=== PATIENT | female | born 1960 | race African-American/Black ===

== ENCOUNTER 2017-12-16 16:24 | Outpatient (CLI) | payer BC | END 2017-12-16 16:25 | disposition home or self-care (01) | LOC: BICMAMMO 16:24 | PROVIDERS: ATTEND Specialist | DX: Z12.31 Encounter for screening mammogram for malignant neoplasm of breast (principal) | CPT/HCPCS: 77063; 77067 ==

== ENCOUNTER 2019-04-28 12:45 | Outpatient (CLI) | payer BC ==
[~2019-04-28 12:45] MED LIST: Iopamidol 370 76% 100 ML VIAL ONE; Iopamidol 370 76% 50 ML VIAL FS ONE
[2019-04-28 13:22] LABS: #Eosinphils 0.1 thou/uL (0.0-0.7); #Lymphocytes 1.3 thou/uL (1.20-3.40); #Monocytes 0.3 thou/uL (0.11-0.59); %Basophils 0.3 % (0.0-1.0); %Eosinophils 4.4 % (0.0-10.0); %Lymphocytes 48.7 % (21.0-51.0); %Monocytes 9.5 % (0.0-10.0); %Neutrophils 37.2 % (42.0-75.0); Hemoglobin 14.7 g/dL (12.0-16.0); Mean Corpuscular HGB CONC 33.8 g/dL (32.0-36.0); Mean Corpuscular Hemoglobin 31.3 pg (27.0-31.0); Mean Corpuscular Volume 92.6 fL (78.0-98.0); Mean Platelet Volume 9.1 fL (7.4-10.4); Platelet Count 161 thou/uL (130-400); RBC Distribution Width 11.3 % (11.5-14.5); White Blood Cell (WBC) Count 2.7 thou/uL (4.8-10.8)
[2019-04-28 13:42] LABS: ALT (SGPT) 34 U/L (8-55); AST (SGOT) 28 U/L (5-34); Albumin 4.5 g/dL (3.5-5.0); Alkaline Phosphatase 79 U/L (40-150); Anion Gap 14 mmol/L (10-20); BUN (Urea Nitrogen) 12 mg/dL (9.8-20.1); Bilirubin, Total 0.3 mg/dL (0.2-1.2); Calc. Creatinine Clearance 0 mL/min (70-130); Calcium 9.7 mg/dL (7.8-10.44); Carbon Dioxide 27 mmol/L (22-29); Chloride 105 mmol/L (98-107); Estimated GFR-MDRD Greater than 90; Globulin 3.5 g/dL (2.4-3.5); Glucose 104 mg/dL (70-105); Potassium 3.8 mmol/L (3.5-5.1); Sodium 142 mmol/L (136-145)
--- NOTE | 2019-04-28 14:47 | RAD ---
TWO VIEW CHEST: INDICATION: Mass of colon. FINDINGS: The lungs are clear. There is mild enlargement of the cardiac silhouette. No effusion or pneumothor ax. Osseous structures are intact. There is enteric contrast of the imaged bowel of the upper abdom en. IMPRESSION: 1. No focal consolidation. 2. Mild enlargement of the cardiac silhouette. POS: C
--- NOTE | 2019-04-28 14:49 | CT ---
CT Abdomen Pelvis W Con History: K 63.9 mass of colon Comparison: None. Findings: Lung bases are clear. No pericardial effusion. There are innumerable hypodensities of the liver, some of which are large, some of which are subcenti meter. The hypodensities which measure greater than 1 cm have fluid attenuation suggestive of cysts. Spleen is unremarkable. Pancreas is unremarkable. Adrenal glands are unremarkable. There are hypodens ities of both kidneys suggestive of cysts. Nonobstructive interpolar and superior right renal calculi. The aortoiliac contour is nonaneurysmal. There is an abnormal mass of the sigmoid colon with a length of 3.5 cm. Remainder of the colon appear s unremarkable. There is an single abnormal sigmoid mesenteric lymph node measuring up to 9 mm. The appendix is visualized and is normal. No suspicious osteolytic or osteoblastic lesion. Moderate f acet arthropathy of the lower lumbar spine. Impression: 1. Sigmoid colon mass measuring 3.5 cm in length with a single abnormal sigmoid mesenteric lymph note d concerning for metastasis. 2. Numerous hypodensities of the liver, likely all cysts. 3. Nonobstructive right renal calculi. 4. Bilateral renal hypodensities suggestive of cysts.
[2019-04-28 16:15] LABS: Hemoglobin A1c 6.4 % (4.0-6.0)
== END 2019-04-28 12:46 | disposition home or self-care (01) ==
LOC: CT 12:45
PROVIDERS: ATTEND Specialist
DX: K63.89 Other specified diseases of intestine (principal); N20.0 Calculus of kidney; K76.89 Other specified diseases of liver; I51.7 Cardiomegaly
CPT/HCPCS: 36415; 71046; 74177; 80053; 82378; 83036; 85025; 93005; 93010; Q9967

== ENCOUNTER 2019-04-28 15:00 | Inpatient (IN) | payer BC ==
[2019-04-28 15:20] VITALS: BMI 28.0
--- NOTE | 2019-04-29 07:39 | HP ---
HISTORY OF PRESENT ILLNESS: Shanta Cunningham is a 59-year-old female patient followed by Dr. Fonseca and seen by Dr. Angella Fonseca, Gastroenterology, today. The patient had a colonoscopy more than 15 years ago, presents now because of crampy abdominal pain, bloating and rectal bleeding. She was having loose stools. She has initially had stool studies that were negative. She was seen by Dr. Fonseca's PA, Allegra, who performed stool studies and serology and treated for H. pylori. Today, the patient underwent upper endoscopy revealing the mild gastritis and colonoscopy was incomplete due to inability to pass the scope beyond the rectosigmoid. The patient had a sigmoid colon mass just above the rectosigmoid placed 20 cm from the rectal verge. Dr. Fonseca was unable to pass the scope beyond the mass. The patient is referred for surgical evaluation. Biopsies were obtained. ALLERGIES: NONE. TOBACCO: None. ALCOHOL: Rarely. MEDICATIONS: 1. Thyroid replacement. 2. Cholesterol lowering medication. PAST SURGICAL HISTORY: Childbirth x2, hysterectomy in 2005, foot surgery. PAST MEDICAL HISTORY: Hypothyroidism, treated medically; elevated cholesterol. SOCIAL HISTORY: The patient is and has two grown children. 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 REVIEW OF SYSTEMS: Ten-point noncontributory. PHYSICAL EXAMINATION: VITAL SIGNS: Weight 158 pounds, height 63 inches, blood pressure 173/88, heart rate 69, temperature 97.5 degrees. HEAD, EARS, EYES, NOSE AND THROAT: Unremarkable. LUNGS: Clear to auscultation. CARDIAC: Regular rate and rhythm without murmur or gallop. ABDOMEN: Soft and nontender. No masses palpable. No tympany. No distention. Well-healed infraumbilical scar from hysterectomy. EXTREMITIES: No edema. ASSESSMENT AND PLAN: High-grade partially obstructing lower sigmoid colon mass consistent with cancer. Biopsies are pending. I have talked to her about undergoing a CAT scan of the abdomen and pelvis and chest x-ray today as well as obtaining a CBC, comprehensive metabolic profile, and a CEA level. She will continue on clear liquids today. We will plan laparoscopic possible open sigmoid colon resection with low anterior anastomosis tomorrow under general anesthesia and TAP block. We will plan postoperative followup in my office next week as well as seeing the medical oncologist next week regarding need for adjunctive therapy. She understands risks of infection, bleeding, reoperation, ureteral injury, open procedure, anastomotic leakage, possible protective ileostomy, and consents. Job ID: [id number]
[2019-04-29] MEDS ORDERED: Midazolam HCl 2 mg/2 ml Vial ONE (11:27)
[2019-04-29] MEDS ORDERED: Fentanyl 100 MCG/2 ML VIAL ONE ×4 (11:27→18:14)
[2019-04-29] MEDS ORDERED: Dexamethasone 4 mg/ml Vial ONE (11:27)
[2019-04-29] MEDS ORDERED: Ketorolac Tromethamine 30 MG/ML VIAL ONE (11:40)
[2019-04-29] MEDS ORDERED: Acetaminophen 1,000 MG in Premix Bag 1 BAG IVPB SCH ×2 (12:00→17:30)
[2019-04-29] MEDS ORDERED: Meropenem 2 GM in Admixture Fee 1 EACH IVPB SCH (12:00)
[2019-04-29] MEDS ORDERED: Ketorolac Tromethamine 30 MG/ML VIAL IVP SCH ×2 (12:00→18:45)
[2019-04-29] MEDS ORDERED: Meropenem 2 GM in Sodium Chloride 0.9% 100 ML IVPB SCH (12:15)
[2019-04-29] MEDS ORDERED: Fentanyl 250 MCG/5 ML VIAL ONE (13:45)
[2019-04-29] MEDS ORDERED: Bupivacaine/Epinephrine 0.25% 30 ML VIAL ONE (14:09)
[2019-04-29] MEDS ORDERED: Morphine 4 MG/ML VIAL SLOW IVP PRN (17:18)
[2019-04-29] MEDS ORDERED: hydrALAZINE 20 MG/ML VIAL SLOW IVP PRN (17:18)
[2019-04-29] MEDS ORDERED: Ondansetron PF 4 MG/2 ML Vial IVP PRN ×2 (17:18→18:18)
[2019-04-29] MEDS ORDERED: traMADol HCl 50 MG TAB PO PRN ×2 (17:24)
[2019-04-29] MEDS ORDERED: Naloxone HCl 0.4 mg/ml Vial IV PRN (18:18)
[2019-04-29] MEDS ORDERED: diphenhydrAMINE 50 MG/ML VIAL IM PRN (18:18)
[2019-04-29] MEDS ORDERED: Zolpidem Tartrate 5 MG TAB PO PRN (18:18)
[2019-04-29] MEDS ORDERED: diphenhydrAMINE 50 MG/ML VIAL IVP PRN (18:18)
[2019-04-29] MEDS ORDERED: diphenhydrAMINE 25 MG CAP PO PRN (18:18)
[2019-04-29] MEDS ORDERED: Promethazine HCl 25 MG/ML VIAL IM PRN (18:18)
[2019-04-29] MEDS ORDERED: fentaNYL Citrate/PF 2,000 MCG in Sodium Chloride 0.9% 60 ML IV PRN (18:18)
[2019-04-29] MEDS ORDERED: Metoprolol Tartrate 5 MG/5 ML VIAL ONE (18:20)
[2019-04-29] MEDS ORDERED: Communication Order-Pharmacy FS SCH (18:30)
[2019-04-29] MEDS ORDERED: HYDROmorphone 2 MG/ML VIAL ONE (18:34)
--- NOTE | 2019-04-29 19:48 | OP ---
DATE OF PROCEDURE: 04/29/2019 PREOPERATIVE DIAGNOSIS: Sigmoid colon cancer, high-grade obstruction, could not pass the colonoscope beyond. POSTOPERATIVE DIAGNOSES: Sigmoid colon cancer, high-grade obstruction, could not pass the colonoscope beyond with past history of hysterectomy with oophorectomy. PROCEDURES PERFORMED: Laparoscopic splenic flexure mobilization, laparoscopic sigmoid colon resection with en bloc resection of the left tube and ovary with colorectal anastomosis, 31-mm EEA stapler, checked under water without leak. ANESTHESIA: General, TAP block. ESTIMATED BLOOD LOSS: 200 mL. BLOOD TRANSFUSION: None Note; preoperative CEA level and CAT scan negative for metastatic disease. Note; the patient who had a large sigmoid tumor circumferential with distortion of the serosa, but not adherent to any surrounding structures. DESCRIPTION OF PROCEDURE: The patient was taken to the operating room where under general anesthesia and TAP block in the dorsal lithotomy position. Singh catheter was placed, left in place at the end of the procedure. Abdomen, perineum, pelvis, and buttocks were prepared with Betadine and draped in routine fashion. Right periumbilical incision made. Pneumoperitoneum to 15 mmHg was obtained with a Veress needle. Left upper quadrant, right upper quadrant, left lower quadrant incisions were made and 5 ports placed. Right lower quadrant incision was made and a 12 port placed. Laparoscopic mobilization of gastrocolic ligament taken down from the distal transverse colon, splenic flexure using the LigaSure. Left colon was mobilized from Gerota fascia. Dissection was carried out medial to lateral sigmoid colon near the pelvis at the sacral apex. Hemorrhoidal vessels identified, dissected anterior. Presacral area dissected free. Dissection was carried up cephalad, medial to lateral, identifying the inferior mesenteric artery and the left ureter. Inferior mesenteric artery was divided with the ASIA white load stapler. Further dissection cephalad carried out, mobilizing the complete mobilization of the splenic flexure and descending colon. Left ureter identified at all times, kept care free of harm. Dissection was carried down to the rectosigmoid. Surrounding the mesentery of the sigmoid colon then divided with LigaSure, skeletonizing the rectosigmoid area and then the distal sigmoid colon just above the rectum or just at the rectum divided with the Endo-ASIA blue load ASIA stapler. At this point, the colon was inspected, and it would reach easily into the pelvis. The suprapubic incision made transversely, Pfannenstiel type, carried down to the skin and subcutaneous tissue sharply and with cautery and incising the rectus fascia transversely, reflecting the rectus muscles laterally, exposing the midline of the abdominal cavity, dissecting the rest free, and placing the wound protector, bringing the sigmoid colon out of the incision and at the point of division, the mesentery divided with a LigaSure to the colon, divided with a cutting current of the cautery, has good blood supply. Mucosa was healthy as a pursestring suture of 2-0 Prolene placed. Once the pursestring Prolene suture was placed, a 31-mm EEA anvil placed, lubricated in the proximal colon. Pursestring suture tied and fatty tissue skeletonized in preparation for the anastomosis. My gloves were then changed. Colon brought back into the abdominal cavity. The wound protecting device twisted to reestablish pneumoperitoneum and my personal care assistant certified diabetes educator then placed rectal sizers in the rectum, then the rectal stapler advanced to the staple line of the rectum and advancing the post out of the staple line, visualized laparoscopically, there was a small amount of fatty tissue, was cleared with the LigaSure, and anastomosis completed with 31-mm EEA stapler completing the anastomosis, removing intact donuts, and anastomosis checked under water, and there was no leak. Good hemostasis noted. Sponge and needle counts were correct. All instruments removed. Our gloves have been changed. The suprapubic fascia Pfannenstiel incision approximated with continuous suture of #1 PDS, skin and subcutaneous tissues irrigated vigorously, and good hemostasis was obtained with the cautery. Irrigant and pneumoperitoneum had been evacuated. All skin incisions were approximated with interrupted subdermal and continuous subdermal suture of 4-0 Monocryl. The patient tolerated the procedure well. Job ID: [id number]
[2019-04-29] MEDS: Acetaminophen 1,000 MG in Premix Bag 1 BAG IVPB SCH (20:05)
[2019-04-29] MEDS: Lactated Ringer's 1,000 ML IV SCH (20:35)
[2019-04-29] MEDS: Pantoprazole 40 MG VIAL IVP SCH (20:57)
[2019-04-29] MEDS ORDERED: Calcium Carbonate 500 MG TAB PO SCH (21:00)
[2019-04-29] MEDS ORDERED: Famotidine/PF 20 mg/2ml Vial SLOW IVP SCH (21:00)
[2019-04-29] MEDS ORDERED: Enoxaparin Sodium 40 MG/0.4 ML SYRINGE SC SCH (21:00)
[2019-04-29] MEDS ORDERED: Famotidine 20 MG TAB PO SCH (21:00)
[2019-04-30] MEDS: Acetaminophen 1,000 MG in Premix Bag 1 BAG IVPB SCH ×3 (00:32→12:01)
[2019-04-30] MEDS: Lactated Ringer's 1,000 ML IV SCH ×4 (02:12→19:16)
[2019-04-30 05:08] LABS: Anion Gap 18 mmol/L (10-20); BUN (Urea Nitrogen) 8 mg/dL (9.8-20.1); Calc. Creatinine Clearance 95 mL/min (70-130); Calcium 8.8 mg/dL (7.8-10.44); Carbon Dioxide 20 mmol/L (22-29); Chloride 102 mmol/L (98-107); Estimated GFR-MDRD Greater than 90; Glucose 183 mg/dL (70-105); Potassium 4.6 mmol/L (3.5-5.1); Sodium 135 mmol/L (136-145)
[2019-04-30 05:17] LABS: Band 30 % (5-11); Hemoglobin 13.5 g/dL (12.0-16.0); Lymphocytes 8 % (21-51); MDiff Complete? YES; Mean Corpuscular HGB CONC 35.2 g/dL (32.0-36.0); Mean Corpuscular Hemoglobin 32.1 pg (27.0-31.0); Mean Corpuscular Volume 91.3 fL (78.0-98.0); Mean Platelet Volume 11.1 fL (7.4-10.4); Monocytes 2 % (0-10); Neutrophil 60 % (42-75); Platelet Count 72 thou/uL (130-400); Platelet Morphology Comment Appears Decreased; RBC Distribution Width 11.3 % (11.5-14.5); White Blood Cell (WBC) Count 12.2 thou/uL (4.8-10.8)
[2019-04-30] MEDS: Liothyronine Sodium 25 MCG TAB PO SCH (08:49)
[2019-04-30] MEDS: Pantoprazole 40 MG VIAL IVP SCH ×3 (08:51→21:22)
[2019-04-30] MEDS ORDERED: Ibuprofen 600 MG TAB PO PRN (09:00)
[2019-04-30] MEDS ORDERED: Rosuvastatin 5 MG TAB PO SCH ×2 (09:00→21:00)
--- NOTE | 2019-04-30 13:39 | PRG ---
DATE OF SERVICE: 04/30/2019 SUBJECTIVE: Ms. Cunningham is postoperative day #1 from laparoscopic sigmoid colectomy. This was performed per Dr. Yuan. She is currently sitting up at bedside and tolerating a full liquid meal. 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 She has ambulated on the floor and she has voided. She denies nausea or vomiting, but she notes that she does feel a bit bloated. OBJECTIVE: VITAL SIGNS: On examination, she is afebrile, pulse is 75, blood pressure is 155/88. LUNGS: Clear to auscultation anteriorly. CARDIAC: Regular rate and rhythm. ABDOMEN: Soft with incisions healing nicely. There are essentially no bowel sounds audible at this time. LABORATORY DATA: Her CBC reveals white blood cell count of 12.2, hemoglobin is 13.5, platelet count is 72. Her preoperative platelet count was 161. Her basic metabolic panel shows low levels of CO2, and her glucose is slightly elevated. ASSESSMENT AND PLAN: The patient is stable postoperative day #1 from colon resection for colon cancer. Although she seems to be tolerating her diet well, I am concerned that she has very hypoactive bowel sounds. I have cautioned her against trying to push her diet too quickly. In regard to her thrombocytopenia, I have discontinued her Lovenox and we will recheck her platelet count tomorrow. I have encouraged her to ambulate and to wear her SCDs since we are discontinuing Lovenox. Job ID: [id number]
[2019-04-30] MEDS ORDERED: traMADol HCl 50 MG TAB PO PRN ×2 (13:54)
[2019-04-30] MEDS: Acetaminophen 500 MG TAB PO SCH ×2 (17:55→21:22)
[2019-04-30] MEDS ORDERED: Acetaminophen 500 MG TAB PO PRN (18:00)
[2019-05-01] MEDS: Lactated Ringer's 1,000 ML IV SCH ×3 (04:32→12:32)
[2019-05-01 05:18] LABS: #Lymphocytes 1.3 thou/uL (1.20-3.40); #Monocytes 0.4 thou/uL (0.11-0.59); #Neutrophils 5.9 thou/uL (1.40-6.50); %Basophils 0.4 % (0.0-1.0); %Eosinophils 0.3 % (0.0-10.0); %Lymphocytes 16.8 % (21.0-51.0); %Monocytes 5.3 % (0.0-10.0); %Neutrophils 77.2 % (42.0-75.0); Hemoglobin 10.8 g/dL (12.0-16.0); Mean Corpuscular HGB CONC 33.5 g/dL (32.0-36.0); Mean Corpuscular Volume 92.4 fL (78.0-98.0); Mean Platelet Volume 9.3 fL (7.4-10.4); Platelet Count 158 thou/uL (130-400); RBC Distribution Width 11.1 % (11.5-14.5); Red Blood Cell (RBC) Count 3.48 mill/uL (4.20-5.40); White Blood Cell (WBC) Count 7.6 thou/uL (4.8-10.8)
[2019-05-01 05:44] LABS: Anion Gap 9 mmol/L (10-20); BUN (Urea Nitrogen) 7 mg/dL (9.8-20.1); Calc. Creatinine Clearance 94 mL/min (70-130); Calcium 8.9 mg/dL (7.8-10.44); Carbon Dioxide 29 mmol/L (22-29); Chloride 104 mmol/L (98-107); Estimated GFR-MDRD Greater than 90; Glucose 112 mg/dL (70-105); Potassium 3.4 mmol/L (3.5-5.1); Sodium 139 mmol/L (136-145)
[2019-05-01] MEDS: Acetaminophen 500 MG TAB PO SCH (09:11)
[2019-05-01] MEDS: Liothyronine Sodium 25 MCG TAB PO SCH (09:11)
[2019-05-01] MEDS: Pantoprazole 40 MG VIAL IVP SCH (09:14)
[2019-05-01 11:36] VITALS: BP 134/81; TEMP 99
== END 2019-05-01 13:00 | disposition home or self-care (01) | DRG 331 ==
LOC: SURG A 04-29 10:50 → EEVIPCON 04-29 10:50 → SJJU 04-29 19:06
PROVIDERS: ADMIT Specialist; ATTEND Specialist
PROC: 0DTN4ZZ Resection of Sigmoid Colon, Percutaneous Endoscopic Approach (ICD-10-PCS; principal; 2019-04-29)
DX: C18.7 Malignant neoplasm of sigmoid colon (principal); E03.9 Hypothyroidism, unspecified; E78.00 Pure hypercholesterolemia, unspecified; D69.6 Thrombocytopenia, unspecified; Z90.710 Acquired absence of both cervix and uterus
CPT/HCPCS: 36415; 36416; 71046; 74177; 80048; 80053; 82378; 83036; 85025; 93005; 93010; C9113; J0131; J1100; J1170; J1650; J1885; J2185; J2250; J2405; J2550; J3010; J3490; Q9967; S0028

== ENCOUNTER 2019-05-08 08:16 | Outpatient (CLI) | payer BC ==
--- NOTE | 2019-05-08 09:23 | CT ---
CT Chest W Con HISTORY: Malignant neoplasm of rectosigmoid colon. Evaluation for cancer staging. COMPARISON: CT of the abdomen and pelvis dated 04/28/2019. FINDINGS: The lungs are clear of any infiltrative process. There are no pulmonary nodules identified. No evidence of pleural effusion. There is no significant mediastinal, hilar or axillary lymphadenopathy. There is a right lobe thyroid nodule demonstrated measuring 1.7 cm, further investigation with ultras ound would be suggested. Numerous hypodensities are seen within the liver which appear to represent cysts. There is also a par tially visualized left renal cyst present. Some fat stranding along the region of the left colon is probably postoperative in nature. Review of osseous structures show no lytic or blastic bony changes. IMPRESSION: 1. Numerous hepatic cysts. 2. No evidence of metastatic disease of the chest.
[2019-05-08] MEDS ORDERED: Iopamidol 370 76% 100 ML VIAL ONE (11:42)
== END 2019-05-08 08:17 | disposition home or self-care (01) ==
LOC: CT 08:16
PROVIDERS: ATTEND Internal Medicine Hematology & Oncology
DX: C19 Malignant neoplasm of rectosigmoid junction (principal); K76.89 Other specified diseases of liver
CPT/HCPCS: 71260; Q9967

== ENCOUNTER 2019-05-20 11:45 | Day surgery (SDC) | payer BC ==
[2019-05-19 10:50] VITALS: BMI 27.6
[2019-05-20] MEDS ORDERED: ceFAZolin Sodium (SDC) 2 GM/100 ML BAG ONE (12:06)
[2019-05-20] MEDS ORDERED: Lidocaine 2% PF 5 ML VIAL ONE (12:39)
[2019-05-20] MEDS ORDERED: Bupivacaine HCl 0.5%/Epinephrine 1:200,000/PF 30 ml Vial ONE (12:39)
[2019-05-20] MEDS ORDERED: Fentanyl 100 MCG/2 ML VIAL ONE (12:45)
[2019-05-20] MEDS ORDERED: Midazolam HCl 2 mg/2 ml Vial ONE (12:45)
--- NOTE | 2019-05-20 13:53 | RAD ---
EXAM: Single view of the chest HISTORY: Mediport placement COMPARISON: None FINDINGS: Single view of the chest shows a normal sized cardiomediastinal silhouette. A right subcla vian Mediport is seen with its tip in the superior vena cava. No pneumothorax is seen. There is no evidence of consolidation, mass, or pleural effusion. The bones are unremarkable. IMPRESSION: Status post Mediport placement without evidence of complication.
--- NOTE | 2019-05-20 19:52 | OP ---
DATE OF PROCEDURE: 05/20/2019 ANESTHESIA: TIVA, local 0.5% Marcaine with epinephrine 30 mL mixed with 2% Xylocaine 10 mL. DESCRIPTION OF PROCEDURE: The patient was taken to the operating room, under intravenous sedation, neck and chest were prepared with ChloraPrep and draped in routine fashion. Local anesthetic was infiltrated in the skin and subcutaneous tissue about the operative site. Infraclavicular approach was used to cannulate the right subclavian vein through a J-wire, removing the trocar catheter, making skin entry site sharply, carried through skin and subcutaneous tissue, creating a pocket with blunt and sharp dissection using cautery for hemostasis. Dilator and Peel-Away sheath placed over the J-wire into the subclavian vein. Dilator and J-wire were removed. Catheter was placed with Peel-Away sheath. Peel-Away sheath was removed. Fluoroscopically, catheter tip was placed in optimal position in the superior vena cava, tailored to length and connected to the MediPort, which was placed in subcutaneous pocket and secured with 2 interrupted suture of 3-0 Prolene. Subcutaneous tissue was approximated with 3-0 Monocryl, skin with subdermal 4-0 Monocryl and Raiford glue applied. MediPort access with a Eden needle, and aspirated blood, flushed with heparinized saline solution. Final fluoroscopic images revealed good line and MediPort placement. Job ID: [id number]
== END 2019-05-20 14:15 | disposition home or self-care (01) ==
LOC: SDC 11:45
PROVIDERS: ATTEND Specialist
PROC: 05H533Z Insertion of Infusion Device into Right Subclavian Vein, Percutaneous Approach (ICD-10-PCS; principal; 2019-05-20)
DX: C18.7 Malignant neoplasm of sigmoid colon (principal); E03.9 Hypothyroidism, unspecified; E78.00 Pure hypercholesterolemia, unspecified; Z79.899 Other long term (current) drug therapy
CPT/HCPCS: 71045; C1788; J0670; J0690; J1642; J2001; J2250; J3010

== ENCOUNTER 2020-01-07 09:11 | Outpatient (CLI) | payer BC ==
--- NOTE | 2020-01-07 09:49 | MMO ---
Bilateral MAMMO Bilat Screen [facility]. CLINICAL HISTORY: Patient is 59 years old and is seen for screening. The patient has no family history of breast cancer. The patient has a history of colon cancer in April,. VIEWS: The views performed were: bilateral craniocaudal with tomosynthesis; bilateral mediolateral oblique with tomosynthesis; and right mediolateral oblique. FILMS COMPARED: The present examination has been compared to prior imaging studies performed at [facility] on 02/21/2010, 07/13/2013, 02/28/2015 and 12/16/2017. This study has been interpreted with the assistance of computer-aided detection. MAMMOGRAM FINDINGS: There are scattered fibroglandular densities. There are stable benign appearing calcifications seen in both breasts. There are no suspicious masses, suspicious calcifications, or new areas of architectural distortion. IMPRESSION: THERE IS NO MAMMOGRAPHIC EVIDENCE OF MALIGNANCY. A ROUTINE FOLLOW-UP MAMMOGRAM IN 1 YEAR IS RECOMMENDED. THE RESULTS OF THIS EXAM WERE SENT TO THE PATIENT. ACR BI-RADS Category 2 - Benign finding MAMMOGRAPHY NOTE: 1. A negative mammogram report should not delay a biopsy if a dominant of clinically suspicious mass is present. 2. Approximately 10% to 15% of breast cancers are not detected by mammography. 3. Adenosis and dense breasts may obscure an underlying neoplasm. Reported by: TC GR MD Electonically Signed: [id number]
== END 2020-01-07 09:12 | disposition home or self-care (01) ==
LOC: BICMAMMO 09:11
PROVIDERS: ATTEND Specialist
DX: Z12.31 Encounter for screening mammogram for malignant neoplasm of breast (principal); Z85.038 Personal history of other malignant neoplasm of large intestine
CPT/HCPCS: 77063; 77067

== ENCOUNTER 2023-06-11 15:12 | Outpatient (CLI) | payer BC | END 2023-06-11 15:13 | disposition home or self-care (01) | LOC: BICMAMMO 15:12 | PROVIDERS: ATTEND Specialist | DX: Z12.31 Encounter for screening mammogram for malignant neoplasm of breast (principal); Z85.038 Personal history of other malignant neoplasm of large intestine | CPT/HCPCS: 77063; 77067 ==

== ENCOUNTER 2024-12-07 08:39 | Outpatient (CLI) | payer OTHER | END 2024-12-07 08:40 | disposition home or self-care (01) | LOC: BICRAD 08:39 | PROVIDERS: ATTEND Specialist | DX: M25.512 Pain in left shoulder (principal) ==

== ENCOUNTER 2025-06-15 10:57 | Outpatient (CLI) | payer OTHER | END 2025-06-15 10:58 | disposition home or self-care (01) | LOC: BICMAMMO 10:57 | PROVIDERS: ATTEND Specialist | DX: Z12.31 Encounter for screening mammogram for malignant neoplasm of breast (principal); M81.0 Age-related osteoporosis without current pathological fracture; Z85.038 Personal history of other malignant neoplasm of large intestine | CPT/HCPCS: 77063; 77067; 77080 ==